=== PATIENT | female | born 1980 | race Caucasian/White ===

== ENCOUNTER 2016-12-16 14:15 | Emergency (ER) | payer OTHER ==
[~2016-12-16] VITALS: Ht 162.5 cm; Wt 57.6 kg
[2016-12-16] MEDS ORDERED: SERTRALINE HYDR25 MG PO (14:41)
[2016-12-16] MEDS ORDERED: PROPRANOLOL HCL10 MG PO (14:41)
[2016-12-16] MEDS ORDERED: VITAMIN D1000 IU PO (14:42)
[2016-12-16] MEDS ORDERED: ALPRAZOLAM0.25 M2 PO (14:42)
[2016-12-16 15:13] LABS: BASO % 0.1 % (0.0-1.0); EOS # 0.1 10*3/uL (0.0-0.4); EOS % 1.6 % (1.0-4.0); HEMATOCRIT 41.5 % (37.0-47.0); HEMOGLOBIN 13.8 g/dl (12.0-16.0); LYMPH # 0.9 10*3/uL (1.3-4.4); LYMPH % 10.5 % (27.0-41.0); MEAN CELL VOLUME 92.2 fl (81.0-99.0); MEAN CORPUSCULAR HGB 30.7 pg (27.0-31.0); MEAN CORPUSCULAR HGB CONC 33.3 g/dl (33.0-37.0); MEAN PLATELET VOLUME 10.8 fl (9.6-12.3); MONO # 0.3 10*3/uL (0.1-1.0); NEUT # 6.8 10*3/uL (2.3-7.9); NEUT % 83.6 % (47.0-73.0); PLATELET COUNT AUTOMATED 178 10*3/uL (130-400); RED CELL DISTRI WIDTH 12.4 % (0-14.5); WHITE BLOOD COUNT 8.1 10*3/uL (4.8-10.8)
[2016-12-16 15:27] LABS: ALBUMIN 4.5 gm/dl (3.1-4.5); ALKALINE PHOSPHATASE 71 U/L (45-117); BILIRUBIN, TOTAL 0.5 mg/dl (0.2-1.0); BUN 7 mg/dl (7-24); CARBON DIOXIDE 28 mmol/L (21-32); CHLORIDE 105 mmol/L (98-107); EST GLOM FILT AFRICAN AMERICAN > 60 ml/min; GLUCOSE 92 mg/dL (65-99); POTASSIUM 4.8 mmol/L (3.5-5.1); SGOT/AST 22 IU/L (3-35); SGPT/ALT 26 U/L (12-78); SODIUM 143 mmol/L (136-145); TOTAL PROTEIN 7.8 gm/dL (6.4-8.2)
[2016-12-16] MEDS ORDERED: IMITREX PO (16:37)
== END 2016-12-16 16:41 | disposition home or self-care (01) ==
LOC: ED 14:15
PROVIDERS: Nurse Practitioner Family
DX: G43.909 Migraine, unspecified, not intractable, without status migrainosus (principal)

== ENCOUNTER → 2017-03-05 | Outpatient (CLI) | payer OTHER ==
[~2017-03-05] MED LIST: ALPRAZOLAM0.25 M2 PO; IMITREX PO; PROPRANOLOL HCL10 MG PO; SERTRALINE HYDR25 MG PO; VITAMIN D1000 IU PO
--- NOTE | ~2017-03-05 | HM ---
[place], [place] HOLTER MONITOR REPORT NAME: IGNACIO CARRERO [facility] #: [id number] UNIT #: [id number] ROOM: DOCTOR: YUSUF MCCANN MD BIRTHDATE: [birth year] DOS: A 48-HOUR HOLTER MONITOR REFERRING PHYSICIAN: ____ INDICATION: Palpitations. The patient underwent 48-hour protocol Holter monitoring. 1. The patient's baseline heart rate was normal sinus. The average heart rate was 64 beats per minute, minimal heart rate of 43 beats per minute, maximal heart rate of 105 beats per minute. 2. Supraventricular activity: The patient had a total of 148 isolated PVCs. 3. Ventricular activity: The patient had a total of 0 ventricular activity. 3. No significant blocks, pauses or bradycardia. 4. Diary was reviewed with 3 entries with multiple episodes of heart racing recorded ____ 3 entries. These all correlate with normal sinus rhythm. SUMMARY OF FINDINGS: Unremarkable 48-hour Holter. YUSUF MCCANN MD CM:HOLTER:HOLTER MONITOR REPORT [id number] ROBERTO MCCANN MD
== END | disposition home or self-care (01) ==
LOC: CARD 08:34
DX: R00.2 Palpitations (principal)

== ENCOUNTER 2017-03-13 00:34 | Emergency (ER) | payer OTHER ==
[~2017-03-13] VITALS: Ht 162.5 cm; Wt 56.7 kg
== END 2017-03-13 02:30 | disposition home or self-care (01) ==
LOC: ED 00:34
DX: G43.909 Migraine, unspecified, not intractable, without status migrainosus (principal); Z79.899 Other long term (current) drug therapy

== ENCOUNTER 2022-10-14 12:46 | Emergency (ER) | payer OTHER ==
[~2022-10-14] VITALS: Ht 162.5 cm; Wt 81.6 kg
[2022-10-14 13:58] LABS: BASO % 0.3 % (0.0-1.0); EOS # 0.2 10*3/uL (0.0-0.4); EOS % 2.6 % (1.0-4.0); HEMATOCRIT 38.6 % (37.0-47.0); LYMPH # 1.1 10*3/uL (1.3-4.4); LYMPH % 12.7 % (27.0-41.0); MEAN CELL VOLUME 91.5 fl (81.0-99.0); MEAN PLATELET VOLUME 10.6 fl (9.6-12.3); MONO # 0.5 10*3/uL (0.1-1.0); MONO % 5.2 % (3.0-9.0); NEUT # 6.9 10*3/uL (2.3-7.9); NEUT % 78.6 % (47.0-73.0); PLATELET COUNT AUTOMATED 217 10*3/uL (130-400); RED BLOOD COUNT 4.22 10*6/uL (4.10-5.10); RED CELL DISTRI WIDTH 12.9 % (0-14.5); WHITE BLOOD COUNT 8.7 10*3/uL (4.8-10.8)
[2022-10-14 14:14] LABS: ALKALINE PHOSPHATASE 73 U/L (46-116); BUN 8 mg/dl (9-23); CHLORIDE 106 mmol/L (98-107); LIPASE 42 U/L (12-53); POTASSIUM 3.9 mmol/L (3.4-5.1); SGPT/ALT 81 U/L (10-49); TOTAL PROTEIN 7.1 gm/dL (6.0-8.0)
[2022-10-14 14:21] LABS: B-hCG (QUALITATIVE) NEGATIVE (NEGATIVE)
[2022-10-14 15:09] LABS: BILIRUBIN Negative (Negative); BLOOD 1+ (Negative); CLARITY Clear (Clear); COLOR Yellow (Yellow); GLUCOSE Negative (Negative); KETONE Negative (Negative); LEUKO ESTERASE Negative (Negative); NITRITE Negative (Negative); PH 5.5 (4.5-8.0); UROBILINOGEN 0.2 E.U./dl (0.0-1.0)
[2022-10-14 15:39] LABS: BACTERIA TRACE; RBC 0-2 rbc/hpf (0-2); WBC 0-2 wbc/hpf (0-5)
[2022-10-14] MEDS ORDERED: HYDROCODONE-AC1 EAC1 PO (16:08)
[2022-10-14] MEDS ORDERED: FLOMAX0.4 MG PO (16:08)
== END 2022-10-14 16:14 | disposition home or self-care (01) ==
LOC: ED 12:46
PROVIDERS: Family Medicine
DX: N13.2 Hydronephrosis with renal and ureteral calculous obstruction (principal); Z79.899 Other long term (current) drug therapy